=== PATIENT | female | born 1970 | race Two or more races ===

== ENCOUNTER 2024-10-20 15:08 | Emergency (ER) | payer OTHER ==
[~2024-10-20] VITALS: Ht 149.9 cm; Wt 67.1 kg
[2024-10-20 15:08] VITALS: O2SAT 99
[2024-10-20] MEDS ORDERED: IBUP-1955 PO (16:16)
[2024-10-20] MEDS ORDERED: ONDA4TAB5 PO (16:16)
== END 2024-10-20 16:33 | disposition home or self-care (01) ==
LOC: ER 15:08
DX: S09.90XA Unspecified injury of head, initial encounter (principal); W22.8XXA Striking against or struck by other objects, initial encounter; Y93.89 Activity, other specified; Y92.89 Other specified places as the place of occurrence of the external cause; Y99.8 Other external cause status
CPT/HCPCS: A4606; A4663